=== PATIENT | female | born 1950 | race Two or more races ===

== ENCOUNTER 2018-06-13 06:06 | Day surgery (SDC) | payer MEDICARE, OTHER ==
[~2018-06-13] VITALS: Ht 162.6 cm; Wt 97.9 kg
[~2018-06-13 06:06] MED LIST: ALBU8.5H8 INH; ATOR10TA65 PO; BUDE6HFA IH; LORA0.5T PO; MIRT15TA5 PO; MONT10TA24 PO; [UNRECOGNIZED DRUG - CODE] OP; [UNRECOGNIZED DRUG - OTHER]
[2018-06-13 07:08] VITALS: Ht 162.6 cm; Wt 97.9 kg
[2018-06-13] MEDS ORDERED: BENAZEPRIL PO (07:14)
[2018-06-13] MEDS ORDERED: REMERON PO (07:14)
[2018-06-13] MEDS ORDERED: METFORMIN PO (07:14)
--- NOTE | 2018-06-13 07:37 | PREAC ---
Date/Time of Note Date/Time of Note DATE: 06/13/18 TIME: 07:34 Anesthesia Eval and Record Evaluation Time Pre-Procedure Interview DATE: 06/13/18 TIME: 07:34 Age 68 Sex female NPO: 8 hrs Preoperative diagnosis gerd, cbh Planned procedure egd and colonoscopy Past Medical History Past Medical History: Includes Cardio: HTN, Dyslipidemia Endo: Diabetes Pulm: Asthma Musculoskeletal: Osteoarthritis Surgery & Anesthesia Issues No known issue Meds Anticoagulation: No Beta Kurt within 24 hr: No Reason Beta Ukrt not given: Pt. not on B-Kurt Reported Medications [Metformin] No Conflict Check, PO 06/13/18 [Benazepril] No Conflict Check, PO 06/13/18 [Remeron] No Conflict Check, PO 06/13/18 Budesonide-Formoterol Fumarate* (Symbicort*) 160-4.5 Hfa.aer.ad, 1 PUFF IH BID, INH 01/06/15 Albuterol Sulfate* (Proair HFA*) 8.5 Gm Hfa.aer.ad, 2 PUFF INH Q4, INH 01/06/15 Bepotastine Besilate (Bepreve) 5 Ml Drops, 5 ML OP 01/06/15 Atorvastatin Calcium (Atorvastatin Calcium) 10 Mg Tab, 10 MG PO HS, TAB 01/06/15 [Senazepril] No Conflict Check, DAILY 01/06/15 Lorazepam* (Lorazepam*) 0.5 Mg Tablet, 0.5 MG PO HS PRN for AGITATION/ANXIETY, TAB 01/06/15 Mirtazapine* (Mirtazapine*) 15 Mg Tablet, 15 MG PO HS, TAB 01/06/15 Montelukast Sodium* (Montelukast Sodium*) 10 Mg Tablet, 10 MG PO HS, TAB 01/06/15 Meds reviewed: Yes Allergies Coded Allergies: Sulfa (Sulfonamide Antibiotics) (Unverified Allergy, Unknown, 01/06/15) HIVES Allergies Reviewed: Yes Labs/Studies Labs Reviewed: Reviewed by anesthesiologist test: N/A Pre-procedure Exam Airway: Adequate mouth opening, Adequate thyromental dist Mallampati: Mallampati II Teeth: Normal Lung: Normal Heart: Normal ASA Physical Status ASA physical status: 2 Emergency: None Planned Anesthetic General/MAC: MAC Planned Pain Management Parenteral pain med Pre-operative Attestations Prior to commencing anesthesia and surgery, the patient was re-evaluated, there was verification of: *The patient's identity *The results of appropriate recent lab work and preoperative vital signs *The above evaluation not changing prior to induction *Anesthetic plan, risk benefits, alternative and complications discussed with patient/family; questions answered; patient/family understands, accepts and wishes to proceed. GARRY DEAL Jun 13, 2018 07:37
[2018-06-13 07:42] VITALS: BP 129/58; PULSE 103; RESP 18
[2018-06-13] MEDS ORDERED: [UNRECOGNIZED DRUG - REMARK] (07:47)
[2018-06-13] MEDS ORDERED: PROPOFOL 60 ML ONE (07:51)
[2018-06-13] MEDS ORDERED: LIDOCAINE 2% (SDV) 5 ML INJ ONE (07:51)
[2018-06-13] MEDS ORDERED: ALBUTEROL 0.083% (NEB) 2.5 MG/3 ML AMP HHN PRN (08:00)
[2018-06-13] MEDS ORDERED: EPHEDrine SULFATE 50 MG/5 ML SYG IV PRN (08:00)
[2018-06-13] MEDS ORDERED: FENTAnyl 50 MCG/ML VIAL IV PRN (08:00)
[2018-06-13] MEDS ORDERED: LABETALOL HCL 20MG INJ IV PRN (08:00)
[2018-06-13] MEDS ORDERED: DIPHENHYDRAMINE 50 MG INJ IV PRN (08:00)
[2018-06-13] MEDS ORDERED: ONDANSETRON 4 MG INJ IV PRN (08:00)
[2018-06-13] MEDS ORDERED: hydrALAzine 20 MG INJ IV PRN (08:00)
[2018-06-13 08:40] VITALS: BP 104/54; PULSE 89; RESP 18
[2018-06-13 08:50] VITALS: BP 108/58; PULSE 92
--- NOTE | 2018-06-13 08:52 | PAC ---
Date/Time of Note Date/Time of Note DATE: 06/13/18 TIME: 08:52 Post-Anesthesia Notes Post-Anesthesia Note Last documented vital signs Vital Signs Date Temp Pulse Resp B/P (MAP) Pulse Ox O2 O2 Flow FiO2 Time Delivery Rate 06/13/18 98.4 103 18 129/58 98 Room Air 0852 (81) Activity: WNL Respiratory function: WNL Cardiovascular function: WNL Mental status: Baseline Pain reasonably controlled: Yes Hydration appropriate: Yes Nausea/Vomiting absent: Yes GARRY DEAL Jun 13, 2018 08:52
[2018-06-13 09:03] VITALS: BP 122/62; PULSE 86; RESP 18
[2018-06-13 09:18] VITALS: BP 115/62; PULSE 82; RESP 15
== END 2018-06-13 12:25 | disposition home or self-care (01) ==
LOC: GIL 06:06
PROVIDERS: ATTEND Internal Medicine Gastroenterology
DX: R19.4 Change in bowel habit (principal); K64.8 Other hemorrhoids; D12.0 Benign neoplasm of cecum; K21.9 Gastro-esophageal reflux disease without esophagitis; E11.9 Type 2 diabetes mellitus without complications; I10 Essential (primary) hypertension; J45.909 Unspecified asthma, uncomplicated; E78.5 Hyperlipidemia, unspecified; Z79.84 Long term (current) use of oral hypoglycemic drugs
CPT/HCPCS: 82962; 88305